=== PATIENT | female | born 1955 | race Caucasian/White ===

== ENCOUNTER → 2016-07-23 | Outpatient (CLI) | payer MEDICARE ==
[~2016-07-23] MED LIST: ASPIRIN PO; FISH OIL 1,0001 CAP PO; HYDROCODONE-APA1 T41 PO; KEFLEX500 MG PO; LIPITOR PO; NAPROXEN PO; NORVASC PO; PROZAC PO; WELCHOL625 MG PO
--- NOTE | ~2016-07-23 | CT113 ---
[facility] A Service of [facility] & [facility] RADIOLOGY TEXT RESULTS PATIENT: LEFTY COMBS LOCATION: [facility] : 51 UNIT #: [id number] AGE: [address]: Estela Cummins MD SEX: F ORDER DR: [id number] [facility] [address] [facility] [address] [facility] [place], [place] [address] [id number] O MR#: [id number] [facility] #: [id number] NAME: LEFTY COMBS. : 1955 SEX: F STUDY DATE/TIME: 07/23/2016 15:13 UNIT: [facility] ROOM: STUDY DESCRIPTION: CT Sinuses Wo Contrast Attending Physician: Estela Cummins M.D. Referring Physician: Estela Cummins M.D. Ordering Physician: Estela Cummins M.D. Primary Care Physician: Estela Cummins M.D. MEDICAL IMAGING REPORT This report is preliminary unless electronic signature is present EXAM CT sinus without contrast, 07/23/[address] sinus without contrast, 02/05/2007. HISTORY The patient complains of blood when she blows her nose for the last 2-3 years. She also has sinus problems. This CT exam was performed with one or more of the following radiation dose reduction techniques: automatic exposure control, adjustment of mA and/or kV according to patient size, and iterative reconstruction. FINDINGS CT of the sinus was obtained in the axial plane followed by sagittal and coronal reformats. Nasal septum is deviated to the right. Severe right sphenoid, moderate left sphenoid, mild bilateral ethmoid (particularly on the right), mild left maxillary sinus and moderate right maxillary sinus mucosal thickening are noted. The other paranasal sinuses are well aerated. There is a large migel bullosa of the left middle turbinate. Ostiomeatal complex are patent. Aislinn blaze, fovea ethmoidalis, cribriform plate and anterior clinoid processes are within normal limits. IMPRESSION 1. Varying degrees of paranasal sinus mucosal thickening is noted, relatively worse in bilateral sphenoid and right maxillary sinuses. Correlate with chronic sinusitis. 2. Nasal septal deviation to the right. 3. No obvious air-fluid levels are noted to suggest acute sinusitis however, possible acute component in the right sphenoid and to a lesser degree left sphenoid sinus cannot be completely excluded. [facility] A Service of [facility] & [facility] RADIOLOGY TEXT RESULTS PATIENT: LEFTY COMBS LOCATION: [facility] : 51 UNIT #: [id number] AGE: [address]: Estela Cummins MD SEX: F ORDER DR: Well-defined air-fluid levels are not seen. Correlate clinically. Dictated by... Haja Berry M.D. THIS IS AN ELECTRONICALLY VERIFIED REPORT Haja Berry M.D. at 07/25/2016 8:45 AM CPR/ancelmo TD: 07/23/2016 21:31 JOB #: [id number] MEDICAL IMAGING REPORT Page 1 of 1 COPY
== END | disposition home or self-care (01) ==
LOC: CCAT 14:31
DX: J01.10 Acute frontal sinusitis, unspecified (principal); J34.2 Deviated nasal septum
CPT/HCPCS: 70486

== ENCOUNTER → 2016-11-26 | Outpatient (CLI) | payer MEDICARE ==
--- NOTE | ~2016-11-26 | CT138 ---
[facility] A Service of [facility] RADIOLOGY TEXT RESULTS PATIENT: LEFTY COMBS LOCATION: [facility] : 51 UNIT #: [id number] AGE: [address]: Estela Cummins MD SEX: F ORDER DR: [id number] [id number] [place], [place] [address] [id number] O MR#: [id number] Acc #: [id number] NAME: LEFTY COMBS : 1955 SEX: F STUDY DATE/TIME: 11/26/2016 15:09 UNIT: [facility] ROOM: STUDY DESCRIPTION: CT Lung screening initial Attending Physician: Estela Cummins M.D. Referring Physician: Estela Cummins M.D. Ordering Physician: Estela Cummins M.D. Primary Care Physician: Estela Cummins M.D. MEDICAL IMAGING REPORT This report is preliminary unless electronic signature is present EXAM CT chest INDICATIONS Lung cancer screening. 61-year-old female is a former smoker with a [id number] history of smoking. Three-year smoking cessation. TECHNIQUE CT of the thorax without contrast. Coronal and sagittal reconstructions were obtained. This CT exam was performed with one or more of the following radiation dose reduction techniques: Automatic exposure control, adjustment of mA and/or kV according to patient size, and iterative reconstruction. COMPARISON CT chest 11/14/2015. FINDINGS A small 2-mm nodule in the right lung apex is unchanged from October 2015, consistent with a benign granuloma. No new or suspicious pulmonary nodules. There is minimal linear atelectasis or scarring in the lung bases. No pathologically enlarged mediastinal or hilar lymph nodes. No pericardial or pleural effusion. Thoracic aorta is normal caliber. IMPRESSION 1. Benign lung cancer screening. No suspicious pulmonary findings are identified. 2. Emphysema. ACR LUNG-RADS CLASSIFICATION 2: Benign examination. [facility] A Service of [facility] & [facility] RADIOLOGY TEXT RESULTS PATIENT: LEFTY COMBS LOCATION: [facility] : 51 UNIT #: [id number] AGE: [address]: Estela Cummins MD SEX: F ORDER DR: RECOMMENDATIONS Annual lung cancer screening with a low-dose chest CT. Dictated by... Ignacio Eisenberg M.D. THIS IS AN ELECTRONICALLY VERIFIED REPORT Ignacio Eisenberg M.D. at 11/27/2016 4:16 PM C/vish TD: 11/27/2016 03:48 JOB #: [id number] MEDICAL IMAGING REPORT Page 1 of 1 COPY
== END | disposition home or self-care (01) ==
LOC: CCAT 14:23
DX: Z87.891 Personal history of nicotine dependence (principal)
CPT/HCPCS: G0297

== ENCOUNTER → 2016-12-19 | Outpatient (CLI) | payer MEDICARE ==
--- NOTE | ~2016-12-19 | MY29 ---
[facility] A Service of [facility] RADIOLOGY TEXT RESULTS PATIENT: LEFTY COMBS LOCATION: [facility] : 53 UNIT #: [id number] AGE: [address]: Estela Cummins MD SEX: F ORDER DR: [id number] [facility] [address] [place], [place] [address] [id number] O MR#: [id number] Acc #: [id number] NAME: LEFTY COMBS : 1955 SEX: F STUDY DATE/TIME: 12/19/2016 11:54 UNIT: [facility] ROOM: STUDY DESCRIPTION: [facility] SCREENING W/ CAD BILAT Attending Physician: Estela Cummins M.D. Referring Physician: Estela Cummins M.D. Ordering Physician: Estela Cummins M.D. Primary Care Physician: Estela Cummins M.D. MEDICAL IMAGING REPORT This report is preliminary unless electronic signature is present EXAM Bilateral digital screening mammogram with CAD, 12/19/2016 INDICATIONS 61-year-old female for routine screening. No reported problems, no personal history of breast cancer. Family history positive in a sister at age 39. Lumpectomy in 1981. TECHNIQUE CC and MLO views of the breasts were obtained and reviewed with an FDA-approved CAD device. COMPARISON 10/21/2013, 09/01/2012, 08/18/2012, 06/18/2011 FINDINGS Breast parenchyma is heterogeneously dense; this degrades sensitivity of screening mammography, increased reliance on physical exam findings recommended. Pattern unchanged. Scar marker present on the right, along with a mole marker. There is no new dominant nodule, mass or suspicious clustered microcalcifications. Benign calcifications are present. IMPRESSION 1. Benign dense mammogram. One-year followup recommended. Patients over the age of 40 are entered into a reminder system with target due date for the next mammogram. A result letter will also be sent to the patient. BIRADS: 2 Benign Finding [facility] A Service of [facility] RADIOLOGY TEXT RESULTS PATIENT: LEFTY COMBS LOCATION: [facility] : 53 UNIT #: [id number] AGE: [address]: Estela Cummins MD SEX: F ORDER DR: Dictated by... Maury Whittaker M.D. THIS IS AN ELECTRONICALLY VERIFIED REPORT Maury Whittaker M.D. at 12/19/2016 2:12 PM ESE/vish TD: 12/19/2016 13:54 JOB #: [id number] MEDICAL IMAGING REPORT Page 1 of 1 COPY
== END | disposition home or self-care (01) ==
LOC: CWCC 11:13
DX: Z12.31 Encounter for screening mammogram for malignant neoplasm of breast (principal); Z80.3 Family history of malignant neoplasm of breast; Z98.890 Other specified postprocedural states
CPT/HCPCS: G0202